=== PATIENT | female | born 1950 | race Caucasian/White ===

== ENCOUNTER 2024-03-01 05:35 | Inpatient (IN) | payer OTHER ==
[~2024-03-01] VITALS: Ht 157.5 cm; Wt 97.5 kg
[2024-03-01] MEDS: ACETAMINOPHEN 500 MG TABLET ONE (05:53)
[2024-03-01] MEDS: oxyCODONE HCL 10 MG TAB.ER.12H PO ONE ×2 (06:00→07:03)
[2024-03-01] MEDS: CEFAZOLIN 2 GM IVPB PREMIX 50 ML IV ONE (06:00)
[2024-03-01] MEDS: SCOPOLAMINE HYDROBROMIDE 1 MG PATCH .72 H (TRANSDERM-SCOP) TD ONE ×2 (06:00→06:30)
[2024-03-01] MEDS: ACETAMINOPHEN 500 MG TABLET PO ONE (06:30)
[2024-03-01] MEDS: GABAPENTIN 300 MG CAPSULE ONE (06:30)
[2024-03-01] MEDS: CELECOXIB 100 MG CAPSULE ONE (06:30)
[2024-03-01] MEDS ORDERED: BUPIVACAINE /DEX PF 0.75% SPINAL 2 ML AMP INJ ONE (06:55)
[2024-03-01] MEDS ORDERED: LACTULOSE 20 GM/30 ML UDC PO PRN (07:00)
[2024-03-01] MEDS ORDERED: NALOXONE HCL 0.4 MG/ML AMP (NARCAN) IVP PRN ×7 (07:00→09:45)
[2024-03-01] MEDS ORDERED: METOCLOPRAMIDE HCL 10 MG/2 ML VIAL IVP PRN (07:00)
[2024-03-01] MEDS ORDERED: BISACODYL 10 MG/SUPPOSITORY RC PRN (07:00)
[2024-03-01] MEDS ORDERED: DIPHENHYDRAMINE HCL 25 MG CAPSULE PO PRN (07:00)
[2024-03-01] MEDS: fentaNYL CITRATE/PF 100 MCG/2 ML AMP ONE (08:16)
[2024-03-01] MEDS: MIDAZOLAM HCL 2 MG/2 ML VIAL (VERSED) ONE (08:17)
[2024-03-01] MEDS ORDERED: hydrALAZINE HCL 20 MG/ML VIAL IV PRN (09:45)
[2024-03-01] MEDS ORDERED: HYDROmorphone 1 MG/ML INJ. CARTRIDGE IVP PRN ×4 (09:45→11:00)
[2024-03-01] MEDS ORDERED: ONDANSETRON HCL 4 MG/2 ML VIAL IVP PRN ×2 (09:45→11:45)
[2024-03-01] MEDS: HYDROmorphone 1 MG/ML INJ. CARTRIDGE ONE ×2 (10:05→10:35)
[2024-03-01] MEDS: HYDROmorphone 1 MG/ML INJ. CARTRIDGE IVP PRN (10:50)
[2024-03-01] MEDS ORDERED: traMADol HCL HCL 50 MG TABLET (ULTRAM) PO PRN (11:00)
[2024-03-01] MEDS ORDERED: LORATADINE 10 MG TABLET PO PRN (11:00)
[2024-03-01] MEDS: hydrALAZINE HCL 20 MG/ML VIAL ONE (11:53)
[2024-03-01] MEDS ORDERED: HYDR12.55 PO (13:15)
[2024-03-01] MEDS ORDERED: AMLO5TAB4 PO (13:16)
[2024-03-01] MEDS ORDERED: LIP20 PO (13:17)
[2024-03-01] MEDS ORDERED: GLIP5TAB23 PO (13:17)
[2024-03-01] MEDS ORDERED: MONT-40 PO (13:18)
[2024-03-01] MEDS ORDERED: LOSA-415 PO (13:18)
[2024-03-01] MEDS ORDERED: NEU300 PO (13:19)
[2024-03-01] MEDS ORDERED: SYN50 PO (13:21)
[2024-03-01] MEDS ORDERED: LEVO25TA7 PO (13:24)
[2024-03-01 14:17] VITALS: O2SAT 96
[2024-03-01 16:00] VITALS: BP_SYST 140; PULSE 89; RESP 18; TEMP 98; O2SAT 95
[2024-03-01] MEDS: oxyCODONE HCL 5 MG TABLET PO PRN (16:05)
[2024-03-01] MEDS: CELECOXIB 100 MG CAPSULE PO ONE (16:07)
[2024-03-01] MEDS: GABAPENTIN 300 MG CAPSULE PO ONE (16:07)
[2024-03-01] MEDS: ceFAZolin SODIUM 2 GM in D5W 100 ML IV SCH (17:46)
[2024-03-01 20:00] VITALS: BP_SYST 162; PULSE 70; RESP 18; TEMP 98.6; O2SAT 98
[2024-03-01] MEDS: SENNOSIDES/DOCUSATE SODIUM 1 TAB TABLET(SENOKOT-S) PO SCH (22:46)
[2024-03-01] MEDS: ACETAMINOPHEN 500 MG TABLET PO SCH (22:48)
[2024-03-01] MEDS: KETOROLAC TROMETHAMINE 10 MG TABLET (TORADOL) PO SCH (22:49)
[2024-03-02] VITALS: BP_SYST 160; PULSE 74; RESP 18; TEMP 98.2; O2SAT 99
[2024-03-02] MEDS: oxyCODONE HCL 5 MG TABLET PO PRN (01:38)
[2024-03-02 07:58] LABS: ALANINE AMINOTRANSFERASE 5 U/L (12-78); ALBUMIN 2.9 g/dL (3.4-4.8); ANION GAP 10 (5-15); ASPARTATE AMINOTRANSFERASE 26 U/L (10-37); CALCIUM 8.1 mg/dL (8.4-11.0); CARBON DIOXIDE 27 mmol/L (23-29); CHLORIDE 100 mmol/L (98-107); CREATININE 0.84 mg/dL (0.55-1.30); GLUCOSE 131 mg/dL (74-106); POTASSIUM 3.9 mmol/L (3.5-5.1); SODIUM SERUM 137 mmol/L (136-145); TOTAL BILIRUBIN 0.7 mg/dL (0.0-1.0); UREA NITROGEN, BLOOD 11 mg/dL (8-21)
[2024-03-02 08:00] VITALS: BP_SYST 154; PULSE 94; RESP 20; TEMP 96.9; O2SAT 98
[2024-03-02] MEDS: HYDROmorphone 1 MG/ML INJ. CARTRIDGE IVP PRN (08:39)
[2024-03-02 09:22] VITALS: O2SAT 96
[2024-03-02] MEDS: GABAPENTIN 300 MG CAPSULE PO SCH (09:26)
[2024-03-02] MEDS: ASPIRIN 81 MG TAB.CHEW PO SCH (09:29)
[2024-03-02] MEDS: amLODIPine BESYLATE 5 MG TABLET PO SCH (09:29)
[2024-03-02] MEDS: LEVOTHYROXINE SODIUM 0.025 MG TABLET PO ONE (09:34)
[2024-03-02 11:21] VITALS: BP_SYST 154; PULSE 94; RESP 20; TEMP 96.9; O2SAT 98
[2024-03-02] MEDS: CELECOXIB 200 MG CAPSULE PO SCH (12:27)
[2024-03-02 16:35] VITALS: BP_SYST 122; PULSE 83; RESP 18; TEMP 97.3; O2SAT 96
[2024-03-02 16:55] VITALS: BP_SYST 115; PULSE 94; RESP 18; TEMP 98.1; O2SAT 95
[2024-03-03] MEDS ORDERED: LEVOTHYROXINE SODIUM 0.025 MG TABLET PO SCH (07:00)
== END 2024-03-02 18:55 | disposition home health service (06) | DRG 470 ==
LOC: SMU 05:35
PROVIDERS: ADMIT Student in an Organized Health Care Education/Training Program; ATTEND Student in an Organized Health Care Education/Training Program
PROC: 0SRC0J9 Replacement of Right Knee Joint with Synthetic Substitute, Cemented, Open Approach (ICD-10-PCS; principal; 2024-03-01 07:07)
DX: M17.11 Unilateral primary osteoarthritis, right knee (principal)
CPT/HCPCS: 36415; 73560; 80053; 82948; 87081; 88305; 88311; 96379; 97110-GP; 97116-GP; 97530-GP; C1713; C1776; J0360; J0690; J0696; J1170; J2405; J2704; J3010; J3370; J3465; J3490; J7060; J7120